=== PATIENT | female | born 1980 | race African-American/Black ===

== ENCOUNTER → 2021-02-25 | Outpatient (CLI) | payer BC ==
[2015-09-18 23:15] VITALS: BP 119/71
--- NOTE | 2021-02-25 17:03 | RAD ---
EXAM: Pelvic sonogram. HISTORY: Menorrhagia. TECHNIQUE: Transabdominal sonographic imaging of the pelvis was performed. COMPARISON: None. FINDINGS: The uterus measures 15.9 x 9.3 x 9.2 cm. There are uterine fibroids measuring 3.9 cm within the superior uterine fundus and 3.2 cm within the left posterior uterine fundus. The endometrial str ipe measures 2.9 mm in thickness. The left ovary is not seen. There is no left adnexal mass or cyst. The right ovary is unremarkable. There is no pelvic free fluid. IMPRESSION: 1. Enlarged uterus containing 2 measurable fibroids. 2. Thin endometrial stripe. 3. Obscured left ovary. Electronically signed by: Mariya Zaman MD (02/25/2021 5:01 PM) [id number]
== END ==
LOC: US 15:50
PROVIDERS: ATTEND Nurse Practitioner Women's Health
DX: N85.2 Hypertrophy of uterus (principal); D25.9 Leiomyoma of uterus, unspecified; N83.8 Other noninflammatory disorders of ovary, fallopian tube and broad ligament
CPT/HCPCS: 76856